=== PATIENT | male | born 2000 | race Caucasian/White ===

== ENCOUNTER 2022-12-30 18:20 | Emergency (ER) | payer MEDICAID, SELFPAY ==
[2022-12-30 20:56] LABS: SARS-CoV-2 NAA Rapid Test Not Detected (NotDetected)
== END 2022-12-30 21:05 | disposition home or self-care (01) ==
LOC: CSHERS 18:20
DX: B34.9 Viral infection, unspecified (principal); F17.210 Nicotine dependence, cigarettes, uncomplicated; Z20.822 Contact with and (suspected) exposure to COVID-19
CPT/HCPCS: 87081; 87430; 99283

== ENCOUNTER 2023-02-17 09:15 | Emergency (ER) | payer MEDICAID, SELFPAY | END 2023-02-17 11:04 | disposition home or self-care (01) | LOC: CSHERS 09:15 | DX: S60.221A Contusion of right hand, initial encounter (principal); F17.210 Nicotine dependence, cigarettes, uncomplicated; W22.09XA Striking against other stationary object, initial encounter ==

== ENCOUNTER 2023-04-24 22:28 | Emergency (ER) | payer SELFPAY ==
[2023-04-24] MEDS ORDERED: HYDROcodone/Acetaminophen 5/325 mg Tablet ONE (23:32)
[2023-04-25] MEDS ORDERED: Ketorolac Tromethamine 30 MG (1 mL) VIAL ONE (01:06)
== END 2023-04-25 01:54 | disposition home or self-care (01) ==
LOC: CSHERS 22:28
DX: S62.316A Displaced fracture of base of fifth metacarpal bone, right hand, initial encounter for closed fracture (principal); F17.210 Nicotine dependence, cigarettes, uncomplicated; Z55.6 Problems related to health literacy; W22.09XA Striking against other stationary object, initial encounter
CPT/HCPCS: 29125; 96372; 99283; J1885